=== PATIENT | female | born 1955 | race Caucasian/White ===

== ENCOUNTER 2017-02-02 12:52 | Day surgery (SDC) | payer BC ==
[~2017-02-02] VITALS: Ht 157.5 cm; Wt 73.9 kg
[2017-02-02] VITALS (15 sets, daily range): BP systolic 121–158; BP diastolic 67–89; PULSE 80–91; RESP 16–18; Ht 157.5 cm; Wt 73.9 kg
[2017-02-02] MEDS ORDERED: GLIP5TAB13 PO (13:15)
[2017-02-02] MEDS ORDERED: ERGO500037 PO (13:16)
[2017-02-02] MEDS ORDERED: OMEP20CA16 PO (13:17)
[2017-02-02] MEDS ORDERED: ALEN70TA30 PO (13:18)
[2017-02-02] MEDS ORDERED: SIMV40TA2 PO (13:21)
[2017-02-02] MEDS ORDERED: METF1000 PO (13:21)
[2017-02-02] MEDS ORDERED: LACTATED RINGER'S 1,000 ML IV* SCH (14:00)
[2017-02-02] MEDS ORDERED: BUPIVACAINE 0.5% (SDV) 30 ML INJ ONE (14:42)
[2017-02-02] MEDS ORDERED: LIDOCAINE 1% (STERILE-PAK) 30 ML INJ ONE (14:42)
[2017-02-02] MEDS ORDERED: POLYMYXIN/BACITRACIN 1L IRRIG ONE (14:42)
--- NOTE | 2017-02-02 15:26 | HPN ---
Date/Time of Note Date/Time of Note DATE: 02/02/17 TIME: 15:26 Interval H&P Admission Note Pt. seen H&P reviewed: No system changes ELVIA WILSON Feb 02, 2017 15:26
[2017-02-02] MEDS ORDERED: MIDAZOLAM 1 MG/ML 2 ML INJ ONE (15:29)
[2017-02-02] MEDS ORDERED: ROPIVACAINE 0.5 % 30 ML VIAL ONE (15:29)
[2017-02-02] MEDS ORDERED: DIPHENHYDRAMINE 50 MG INJ IV PRN (16:30)
[2017-02-02] MEDS ORDERED: ONDANSETRON 4 MG INJ IV PRN (16:30)
[2017-02-02] MEDS ORDERED: METOCLOPRAMIDE 10 MG INJ IV PRN (16:30)
[2017-02-02] MEDS ORDERED: MEPERIDINE 25 MG INJ IV PRN (16:30)
[2017-02-02] MEDS ORDERED: FENTAnyl 50 MCG/ML VIAL IV PRN ×2 (16:30)
[2017-02-02] MEDS ORDERED: CEFAZOLIN 1 GM INJ ONE (16:38)
[2017-02-02] MEDS ORDERED: LIDOCAINE 2% (SDV) 5 ML INJ ONE (16:38)
[2017-02-02] MEDS ORDERED: PROPOFOL 20 ML ONE (16:38)
[2017-02-02] MEDS ORDERED: SUGAMMADEX SODIUM 200 MG/2 ML VIAL IV ONE (16:38)
--- NOTE | 2017-02-02 16:56 | OPPN ---
Date/Time of Note Date/Time of Note DATE: 02/02/17 TIME: 16:55 Operative Report Preoperative Diagnosis left distal radius fracture, intra-articular, greater than 3 fragments Postoperative Diagnosis left distal radius fracture, intra-articular, greater than 3 fragments Operation/Procedure Performed open reduction internal fixation left distal radius fracture, intra-articular, greater than 3 fragments Surgeon see signature line funeral assistant none Anesthesia: general, other Estimated blood loss: 0 - 10 ml's Transfusion Required none Specimen none Grafts/Implants none Complications none ELVIA WILSON Feb 02, 2017 16:56
--- NOTE | 2017-02-02 16:56 | OPPN ---
Date/Time of Note Date/Time of Note DATE: 02/02/17 TIME: 16:55 Operative Report Preoperative Diagnosis left distal radius fracture, intra-articular, greater than 3 fragments Postoperative Diagnosis left distal radius fracture, intra-articular, greater than 3 fragments Operation/Procedure Performed open reduction internal fixation left distal radius fracture, intra-articular, greater than 3 fragments Surgeon see signature line academic assistant none Anesthesia: general, other Estimated blood loss: 0 - 10 ml's Transfusion Required none Specimen none Grafts/Implants none Complications none ELVIA WILSON Feb 02, 2017 16:56
[2017-02-02] MEDS ORDERED: OXYCODONE/ACETAMINOPHEN (5/325) TAB PO PRN (17:30)
--- NOTE | 2017-02-02 18:37 | OPR ---
DATE OF OPERATION: 02/02/2017 SURGEON: Neal Will MD ANESTHESIOLOGIST: Peripheral nerve block, plus general. PREOPERATIVE DIAGNOSIS: Left distal radius fracture, intra- articular, greater than 3 fragments. POSTOPERATIVE DIAGNOSIS: Left distal radius fracture, intra- articular, greater than 3 fragments. PROCEDURE: Open reduction, internal fixation left distal radius fracture, intra-articular, greater than 3 fragments. OPERATIVE FINDINGS: Comminuted intra-articular left distal radius fracture. INDICATIONS FOR PROCEDURE: Patient is a 61-year-old female with injury to the left wrist. She was seen in clinic and diagnosed with a distal radius fracture with displacement. Options were discussed and she elected to proceed with surgical intervention. Understanding the risks and benefits. DESCRIPTION OF PROCEDURE: The patient was seen in the preoperative area. All further questions were answered. Again, she gave informed consent. Understood risks, benefits. She was taken to the operative suite and placed in the supine position. A peripheral nerve block was performed at my request for perioperative anesthesia as well as postoperative pain relief. The patient was placed under general anesthesia and tourniquet placed on left upper extremity. Ancef 2 grams IV given and left upper extremity was prepped with ChloraPrep stick and draped usual sterile fashion. Esmarch bandage was used to exsanguinate the extremity and tourniquet inflated to 250 mmHg. A modified volar approach to the distal radius was utilized with sharp dissection carried down through skin and subcutaneous tissue. The FCR sheath was incised along the radial border and the FCR tendon retracted ulnarly. The FCR sub sheath was incised. The FPL tendon retracted ulnarly. The pronator quadratus was incised along its radial and distal borders using Bovie electrocautery. The fracture was reduced anatomically and a [employer] distal radius plate was placed over the volar aspect of the distal radius. A cortical screw was placed in the oblong hole and locking screws were placed distally. X-ray imaging confirmed near anatomic alignment and appropriate hardware placement. Additional cortical and locking screws were placed proximally and final x-ray imaging showed appropriate hardware placement and bony alignment. Wound was copiously irrigated. Skin closed with deep dermal 4-0 Monocryl. Steri-Strips were placed over the wound followed by Xeroform, sterile gauze, Webril, and a short- arm splint. Tourniquet deflated after 37 minutes. The patient was awakened from anesthesia. She was taken postoperatively in stable condition. Tolerated the procedure well with no complications. SPECIMENS: None. ESTIMATED BLOOD LOSS: 5 mL. COUNTS: Sponge and needle counts correct. TOURNIQUET TIME: 37 minutes. CONDITION ON DISCHARGE: Stable. Dictated By: Neal Will MD /[email or web address]/judi /Document#: [id number] MTDDavid
--- NOTE | 2017-02-02 22:10 | RADRPT ---
PROCEDURE: Intraoperative imaging of the left wrist with fluoroscopy. CLINICAL INDICATION: Left wrist pain. Intraoperative. TECHNIQUE: 14 images of the left wrist were obtained in the operating room with an image intensifi er. No radiologist was in attendance. Fluoroscopy time is 60 seconds. COMPARISON: No prior study is available for comparison. FINDINGS: Images demonstrate open reduction and internal fixation of the fracture of the distal radius with a plate and multiple screws. IMPRESSION: 1. Intraoperative imaging of the left wrist. RPTAT: QQ .Jaspreet Phan MD, MD Date Time Electronically viewed and signed by .Jaspreet Phan MD, on 02/02/2017 22:10 .R/
== END 2017-02-02 18:50 | disposition home or self-care (01) ==
LOC: SDS 12:52
PROVIDERS: ATTEND Orthopaedic Surgery Hand Surgery
DX: S52.572A Other intraarticular fracture of lower end of left radius, initial encounter for closed fracture (principal); E11.9 Type 2 diabetes mellitus without complications; E66.9 Obesity, unspecified; X58.XXXA Exposure to other specified factors, initial encounter; Y93.89 Activity, other specified; Y92.89 Other specified places as the place of occurrence of the external cause; Y99.8 Other external cause status
CPT/HCPCS: 25609; 73110; 82962; J0690; J2250; J2795